=== PATIENT | female | born 1950 | race Hispanic/Latino ===

== ENCOUNTER 2017-09-11 09:16 | Outpatient (CLI) | payer MEDICARE, MEDICAID ==
[2017-09-11] MEDS ORDERED: ISOVUE-370 76%-LOCM 1 ML ONE (13:24)
== END 2017-09-11 09:17 | disposition home or self-care (01) ==
LOC: BICCT 09:16
PROVIDERS: ATTEND Internal Medicine Hematology & Oncology
DX: C21.1 Malignant neoplasm of anal canal (principal); K44.9 Diaphragmatic hernia without obstruction or gangrene; Q76.49 Other congenital malformations of spine, not associated with scoliosis; Z90.5 Acquired absence of kidney
CPT/HCPCS: 74177